=== PATIENT | female | born 1975 | race Two or more races ===

== ENCOUNTER 2017-09-15 09:05 | Outpatient (CLI) | payer OTHER ==
[~2017-09-15 09:05] MED LIST: DECON-A LIQUID118 ML PO; DICLOFENAC POTA50 MG PO; LYRICA50 MG PO; PREDNISOLO15 MG/5 ML PO; PROVENTIL S2 MG/5 ML PO; TIZANIDINE HCL2 MG PO; ZITHROMAX Z PACK PO
== END 2017-09-15 09:15 | disposition home or self-care (01) ==
LOC: SONOGRAMA 09:05
DX: E04.1 Nontoxic single thyroid nodule (principal)

== ENCOUNTER 2018-02-03 14:50 | Outpatient (CLI) | payer OTHER ==
[~2018-02-03 14:50] MED LIST changes: +MELOXICAM7.5 MG PO
== END 2018-02-03 14:53 | disposition home or self-care (01) ==
LOC: RAD 14:50
DX: R06.02 Shortness of breath (principal); J45.30 Mild persistent asthma, uncomplicated

== ENCOUNTER → 2020-08-04 | Outpatient (CLI) | payer OTHER | END | disposition home or self-care (01) | LOC: SONOGRAMA 12:17 | PROVIDERS: ATTEND Pathology Anatomic Pathology | DX: D34 Benign neoplasm of thyroid gland (principal); E04.8 Other specified nontoxic goiter ==

== ENCOUNTER 2023-10-20 19:30 | Emergency (ER) | payer OTHER ==
[~2023-10-20] VITALS: Ht 160 cm; Wt 81.6 kg
[2023-10-20] MEDS ORDERED: CRESTOR10 MG PO (19:47)
[2023-10-20] MEDS ORDERED: CATAPRES0.3 MG PO (19:47)
[2023-10-20] MEDS ORDERED: LASIX20 MG PO (19:48)
[2023-10-20] MEDS ORDERED: [UNRECOGNIZED DRUG - OTHER] PO (19:48)
[2023-10-20] MEDS ORDERED: DIAZEPAM5 MG PO (19:48)
[2023-10-20] MEDS ORDERED: CHLORTHALIDONE25 MG PO (19:48)
[2023-10-20] MEDS ORDERED: CARVEDILOL ER40 MG PO (19:49)
[2023-10-20] MEDS ORDERED: ABACAVIR-LAMIV1 EAC1 PO (19:49)
[2023-10-20] MEDS ORDERED: FUROsemide 20 MG/2 ML VIAL IV ONE (20:45)
[2023-10-20 21:19] LABS: HEMATOCRIT 39.7 % (36.0-45.00); HEMOGLOBIN 13.8 g/dL (12.0-15.00); MEAN CELL VOLUME 93.3 fL (80.00-100.00); MEAN CORPUSCULAR HEMOGLOBIN 32.4 pg (27.00-32.0); MEAN CORPUSCULAR HGB CONC 34.8 g/dl (32.0-36.0); PLATELET COUNT 203 K/uL (150-450); RED BLOOD COUNT 4.26 M/uL (4.00-6.00); RED CELL DISTRIBUTION WIDTH 16.5 % (11.5-14.5)
[2023-10-20 21:45] LABS: ALBUMIN 3.4 gm/dL (3.4-5.0); BILIRUBIN TOTAL 4.35 mg/dL (0.3-1.2); CALCIUM 9.2 mg/dL (8.5-10.1); CREATININE SERUM 0.79 mg/dL (0.55-1.02); GFR 77.03; GLOBULINA 3.1 G/DL (2.4-3.5); POTASSIUM 3.78 mEq/L (3.5-5.1); TOTAL PROTEIN 6.5 gm/dL (6.4-8.2)
[2023-10-20 23:18] LABS: PH,URINE 7.5 (5.0-8.0); URINE APPEARANCE Clear; URINE BILIRRUBIN Negative (NEGATIVE); URINE BLOOD Trace; URINE COLOR Yellow; URINE GLUCOSE Negative (NEGATIVE); URINE LEUKOCYTE Large; URINE NITRATE Negative; URINE PROTEIN Negative (NEGATIVE); URINE UROBILINOGEN 0.2 E.U./dl
[2023-10-20 23:22] LABS: URINE BACTERIA 570.6 uL (0.0-1933); URINE EPITHELIAL CELLS 35.3 uL (0.0-38.8); URINE RBC 2.2 uL (0.0-20.8); URINE WBC 27.6 uL (0.0-23.2)
[2023-10-20 23:37] LABS: ALBUMIN 3.5 gm/dL (3.4-5.0); BILIRUBIN TOTAL 4.76 mg/dL (0.3-1.2); BILIRUBIN,CONJUGATED 0.55 mg/dL (0.0-0.2); BILIRUBIN,UNCONJUGATED 4.21 mg/dL (0.0-0.6); TOTAL PROTEIN 7.3 gm/dL (6.4-8.2)
[2023-10-21] MEDS ORDERED: KETOROLAC TROMETHAMINE 30 MG VIAL IV ONE (12:45)
== END 2023-10-21 13:11 | disposition home or self-care (01) ==
LOC: ER 19:30
PROVIDERS: General Practice
DX: K57.30 Diverticulosis of large intestine without perforation or abscess without bleeding (principal); R60.0 Localized edema; I10 Essential (primary) hypertension; Z88.8 Allergy status to other drugs, medicaments and biological substances